=== PATIENT | male | born 1935 | race Caucasian/White ===

== ENCOUNTER 2020-11-08 09:05 | Outpatient (CLI) | payer OTHER | END 2020-11-08 09:09 | disposition home or self-care (01) | LOC: SONOGRAMA 09:05 | PROVIDERS: ATTEND Pathology Anatomic Pathology & Clinical Pathology | DX: R92.0 Mammographic microcalcification found on diagnostic imaging of breast (principal) ==

== ENCOUNTER 2021-12-25 08:41 | Outpatient (CLI) | payer OTHER | END 2021-12-25 08:47 | disposition home or self-care (01) | LOC: SONOGRAMA 08:41 | DX: R10.9 Unspecified abdominal pain (principal) ==